=== PATIENT | female | born 1940 | race Caucasian/White ===

== ENCOUNTER 2019-11-16 23:32 | Inpatient (IN) ==
[2019-11-17] MEDS ORDERED: MORPHINE IV ONE ×2 (00:16→02:57)
[2019-11-17] MEDS ORDERED: ZOFRAN IV ONE (00:16)
[2019-11-17] MEDS ORDERED: NS 500 ML IV ONE (00:16)
[2019-11-17 00:39] LABS: BASO# 0.03 X1000 (0.0-0.2); BASO% 0.3 % (0.0-0.8); EOS# 0.14 X1000 (0.0-0.7); EOS% 1.2 % (0.0-10.0); HEMATOCRIT 33.3 % (37.0-47.0); IMM GRAN# 0.08 X1000 (0.0-0.04); IMM GRAN% 0.7 % (0.0-0.5); LYMPH# 1.85 X1000 (1.2-3.4); LYMPH% 15.7 % (20.5-51.1); MCH 26.1 PG (27-31); MCV 86.9 FL (81-99); MONO# 0.82 X1000 (0.11-0.59); MPV 8.6 FL (7.4-10.4); NEUT# 8.84 X1000 (1.4-6.5); NEUT% 75.1 % (42.2-75.2); PLT 456 X1000 (130-400); RBC 3.83 XMIL (4.2-5.4); RDW 16.3 % (11.5-14.5); WBC 11.76 X1000 (4.8-10.8)
[2019-11-17 00:51] LABS: INR 0.96; PROTIME 12.9 Seconds (11.0-16.0)
[2019-11-17 00:52] LABS: PTT 23.6 Seconds (22.3-41.8)
[2019-11-17 01:00] LABS: URINE SOURCE CATH
[2019-11-17 01:03] LABS: BILIRUBIN URINE NEGATIVE (NEGATIVE); BLOOD URINE SMALL (NEGATIVE); COLOR YELLOW; GLUCOSE URINE NEGATIVE (NEGATIVE); KETONE URINE NEGATIVE (NEGATIVE); LEUKOCYTES URINE LARGE (NEGATIVE); NITRITE URINE POSITIVE (NEGATIVE); PH URINE 6.5; PROTEIN URINE 70 mg/dL (NEGATIVE); SP GRAVITY URINE 1.006; TURBIDITY URINE HAZY (CLEAR); UR EPITHELIAL CELLS <10 /HPF (<10); URINE BACTERIA 4+ /HPF; URINE RBC <10 /HPF (<10); URINE WBC TNTC /HPF (<10); UROBILINOGEN URINE NORMAL (NORMAL)
[2019-11-17 01:37] LABS: ALB/GLOB RATIO 1.5; ALBUMIN 4.1 g/dL (3.5-5.0); CALCIUM 9.4 mg/dL (8.8-10.2); CREATININE 1.3 mg/dL (0.5-0.9); POTASSIUM 3.2 mmol/L (3.5-5.1); TOTAL BILIRUBIN 0.26 mg/dL (0.20-1.00); TOTAL PROTEIN 6.9 g/dL (6.3-8.3)
--- NOTE | 2019-11-17 02:08 | PROVIDER DOCUMENTATION ---
This chart was entered by Alba Carlton Scribe, acting as scribe for Alejandro Calixto MD. 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 Pt reports she has been feeling weak and has had a poor appetite recently. Pt has hx of COPD, DM and HTN. Pt does report hitting head but no LOC/V/N. Quality of Pain: reports: aching Severity in ED: mild, moderate Onset/Duration: just prior to arrival Timing: still present Modifying Factors: worse with: movement Any recent injury?: Yes (fell) Locality of Occurance: Home Similar Symptoms Previously?: No Recently seen or treated by another doctor?: No - FALL INJURY Location of Pain/Injury: reports: pelvis (left hip) Reason for Fall: reports: lost balance Symptoms prior to fall:: reports: other (weak) Loss of Consciousness: no loss of consciousness Injury Associated Symptoms: reports: joint pain (left hip) Review of Systems - Adult - REVIEW OF SYSTEMS - ADULT Constitutional: reports: see HPI, fatique. denies: chills, fever Eyes: reports: no symptoms reported Ears, Nose, Mouth & Throat: reports: no symptoms reported Cardiovascular: reports: see HPI. denies: chest pain, palpitations Respiratory: reports: no symptoms reported Gastrointestinal: reports: see HPI, poor appetite. denies: diarrhea, nausea, vomiting Genitourinary: reports: no symptoms reported Musculoskeletal: reports: see HPI, joint pain (left hip). denies: neck pain Integumentary: reports: no symptoms reported Neurological: reports: no symptoms reported Psychiatric: reports: no symptoms reported Endocrine: reports: no symptoms reported Hematologic/Lymphatic: reports: no symptoms reported Allergic/Immunologic: reports: no symptoms reported All Other Systems: Reviewed and Negative Past History - Adult - PAST MEDICAL HISTORY-ADULT Review of Records: reports: Nursing Assessment Review, Medications Reviewed, Social history reviewed & non-contributory. Major Childhood Illnesses: reports: denies history Cardiovascular: reports: HTN Respiratory: reports: asthma, COPD Gastrointestinal: reports: denies history Obstetrical/Gynecological: reports: denies history Genitourinary: reports: denies history Musculoskeletal: reports: denies history Neurological: reports: denies history Endocrine/Immune: reports: thyroid disorder (hyper) Other Conditions: reports: denies history - IMMUNIZATION STATUS Childhood Immunizations: See Nurse Assessment Flu Vaccine: See Nurse Assessment - FAMILY HISTORY Family History: reviewed, not pertinent - SOCIAL HISTORY Smoking: denies Physical Exam-Injury Related - Physical Exam-Injury Related Initial Vital Signs Reviewed: Yes General Appearance: appears well, alert. negative: anxious, combative Immobilization?: negative: backboard, C-collar Eyes: PERRL/EOMI, pink conjunctivae. negative: photophobia Head, Ears, Nose, Mouth & Throat: normocephalic/atraumatic, moist mucous membranes. negative: angioedema Neck: non-tender, full range of motion, supple, normal inspection. negative: C- spine tenderness Respiratory: chest non-tender, lungs clear, normal breath sounds. negative: rhonchi, stridor Cardiovascular: normal peripheral pulses, regular rate, rhythm, no edema. negative: bradycardia, tachycardia Abdominal Exam: normal bowel sounds, non tender, soft. negative: guarding, rigid Extremity: tenderness (left hip). negative: normal range of motion (left hip), deformity Integumentary: normal color. negative: ecchymosis, jaundice Psych/Mental Status: normal mood/affect, oriented x 3. negative: anxious, disheveled - Glascow Coma Score Best Eye Response (Luis): (4) open spontaneously Best Verbal Response (Luis): (5) oriented Best Motor Response ([place]): (6) obeys commands Luis Total: 15 Progress - PLAN OF CARE/RESULTS Progress/Plan/Lab Results: Vital Signs - 8 hr 11/16/19 23:44 11/16/19 23:50 11/16/19 23:52 Temperature 98 F Pulse Rate 96 H 93 H 94 H Respiratory Rate 18 Blood Pressure 143/68 143/68 O2 Sat by Pulse Oximetry 99 100 100 11/17/19 00:00 11/17/19 00:08 11/17/19 00:15 Temperature Pulse Rate 93 H Respiratory Rate Blood Pressure 115/61 O2 Sat by Pulse Oximetry 99 98 97 11/17/19 00:30 11/17/19 00:31 11/17/19 00:45 Temperature Pulse Rate 94 H Respiratory Rate Blood Pressure 112/95 O2 Sat by Pulse Oximetry 100 99 100 11/17/19 01:00 11/17/19 01:28 11/17/19 01:47 Temperature Pulse Rate Respiratory Rate Blood Pressure O2 Sat by Pulse Oximetry 96 96 97 Laboratory Results - last 24 hr 11/17/19 11/17/19 11/17/19 00:08 00:08 00:08 WBC 11.76 H RBC 3.83 L Hgb 10.0 L Hct 33.3 L MCV 86.9 MCH 26.1 L MCHC 30.0 L RDW Std Deviation 16.3 H Plt Count 456 H MPV 8.6 Immature Gran % (Auto) 0.7 H Neut % (Auto) 75.1 Lymph % (Auto) 15.7 L [place] % (Auto) 7.0 Eos % (Auto) 1.2 Baso % (Auto) 0.3 Immature Gran # (Auto) 0.08 H Neut # (Auto) 8.84 H Lymph # (Auto) 1.85 [place] # (Auto) 0.82 H Eos # (Auto) 0.14 Baso # (Auto) 0.03 PT INR PTT (Actin FS) Sodium 134 L Potassium 3.2 L Chloride 93 L Carbon Dioxide 26 Anion Gap 15 BUN 9 Creatinine 1.3 H Estimated GFR/1.73 m2 40 BUN/Creatinine Ratio 7 Glucose 141 H Calculated Osmolality 269 Calcium 9.4 Magnesium Total Bilirubin 0.26 AST 13 ALT 14 Alkaline Phosphatase 100 Total Protein 6.9 Albumin 4.1 Globulin 2.8 Albumin/Globulin Ratio 1.5 Plasma Lactate Free T4 1.96 H Urine Source Urine Color Urine Turbidity Urine pH Ur Specific [place] Urine Protein Ur Glucose (Stick) Ur Ketones (Stick) Urine Blood Urine Nitrite Urine Bilirubin Urobilinogen Dipstick Urine Leukocytes Urine WBC (Auto) Urine RBC (Auto) U Epithel Cells (Auto) Urine Bacteria (Auto) 11/17/19 11/17/19 11/17/19 00:08 00:08 00:40 WBC RBC Hgb Hct MCV MCH MCHC RDW Std Deviation Plt Count MPV Immature Gran % (Auto) Neut % (Auto) Lymph % (Auto) [place] % (Auto) Eos % (Auto) Baso % (Auto) Immature Gran # (Auto) Neut # (Auto) Lymph # (Auto) [place] # (Auto) Eos # (Auto) Baso # (Auto) PT 12.9 INR 0.96 PTT (Actin FS) 23.6 Sodium Potassium Chloride Carbon Dioxide Anion Gap BUN Creatinine Estimated GFR/1.73 m2 BUN/Creatinine Ratio Glucose Calculated Osmolality Calcium Magnesium 1.8 Total Bilirubin AST ALT Alkaline Phosphatase Total Protein Albumin Globulin Albumin/Globulin Ratio Plasma Lactate 1.2 Free T4 Urine Source Urine Color Urine Turbidity Urine pH Ur Specific [place] Urine Protein Ur Glucose (Stick) Ur Ketones (Stick) Urine Blood Urine Nitrite Urine Bilirubin Urobilinogen Dipstick Urine Leukocytes Urine WBC (Auto) Urine RBC (Auto) U Epithel Cells (Auto) Urine Bacteria (Auto) 11/17/19 00:40 WBC RBC Hgb Hct MCV MCH MCHC RDW Std Deviation Plt Count MPV Immature Gran % (Auto) Neut % (Auto) Lymph % (Auto) [place] % (Auto) Eos % (Auto) Baso % (Auto) Immature Gran # (Auto) Neut # (Auto) Lymph # (Auto) [place] # (Auto) Eos # (Auto) Baso # (Auto) PT INR PTT (Actin FS) Sodium Potassium Chloride Carbon Dioxide Anion Gap BUN Creatinine Estimated GFR/1.73 m2 BUN/Creatinine Ratio Glucose Calculated Osmolality Calcium Magnesium Total Bilirubin AST ALT Alkaline Phosphatase Total Protein Albumin Globulin Albumin/Globulin Ratio Plasma Lactate Free T4 Urine Source CATH Urine Color YELLOW Urine Turbidity HAZY Urine pH 6.5 Ur Specific [place] 1.006 Urine Protein 70 A Ur Glucose (Stick) NEGATIVE Ur Ketones (Stick) NEGATIVE Urine Blood SMALL A Urine Nitrite POSITIVE A Urine Bilirubin NEGATIVE Urobilinogen Dipstick NORMAL Urine Leukocytes LARGE A Urine WBC (Auto) TNTC A Urine RBC (Auto) <10 U Epithel Cells (Auto) <10 Urine Bacteria (Auto) 4+ Orders Category Date Time Status Saline Loc NOW Care 11/17/19 00:15 Active CHEST-PORTABLE [RAD] Stat Exams 11/17/19 00:16 Taken XRAY PELVIS W/HIP 2-3VW LT [RAD] Stat Exams 11/17/19 01:19 Taken CBC WITH ELECTRONIC DIFF [HEME] Stat Lab 11/17/19 00:08 Completed COMPREHENSIVE METABOLIC PANEL [CHEM] Stat Lab 11/17/19 00:08 Completed FREE T4 Stat Lab 11/17/19 00:08 Completed LACTATE, PLASMA [CHEM] Stat Lab 11/17/19 00:40 Completed MAGNESIUM [CHEM] Stat Lab 11/17/19 00:08 Completed PROTIME WITH INR [COAG] Stat Lab 11/17/19 00:08 Completed PTT [COAG] Stat Lab 11/17/19 00:08 Completed URINALYSIS W/POSS RFLX CULT [URINALYSIS] Stat Lab 11/17/19 00:40 Completed URINE CULTURE [RM] Routine Lab 11/17/19 00:38 Received 0.9% Sodium Chloride Inj [Ns] 500 ml Med 11/17/19 00:16 Discontinued IV 999 mls/hr Morphine Med 11/17/19 00:16 Discontinued 2 mg IV NOW ONE Ondansetron Odt [Zofran Odt] Med 11/17/19 02:40 Once 4 mg PO NOW ONE Ondansetron [Zofran] Med 11/17/19 00:16 Discontinued 4 mg IV NOW ONE Potassium Chloride E.r. [Klor-Con] Med 11/17/19 02:40 Once 40 meq PO NOW ONE Rocephin 1 gm/Ns IV Now Med 11/17/19 02:41 Ordered CefTRIAXONE [Rocephin] 1 gm 0.9% Sodium Chloride Inj [Ns] 50 ml IV NOW EKG [EKG] Stat Ther 11/17/19 00:15 Ordered Result Diagrams: 11/17/19 00:08 11/17/19 00:08 - EKG 1 Time of EKG reading by physician:: 00:42 EKG Read and Signed by:: Alejandro Calixto EKG Interpretation (*Must complete 3 of following elements*): Normal Rate: 98 Rhythm: NSR QRS: normal MI Interval: normal - CONSULTS/PCP/HOSPITALIST Notification #1 *Consult/PCP/Hospitalist*: DR BOWER Time Discussed: 02:45 Consult Disposition: Admit Departure - Departure Date of Disposition Decision: 11/17/19 Time of Disposition Decision: 02:45 DIAGNOSIS: Weakness, Hypokalemia, Hyperthyroidism Fall Qualifiers: Encounter type: initial encounter Qualified Code(s): W19.XXXA - Unspecified fall, initial encounter Contusion of left hip Qualifiers: Encounter type: initial encounter Qualified Code(s): S70.02XA - Contusion of left hip, initial encounter UTI (urinary tract infection) Qualifiers: Urinary tract infection type: acute cystitis Hematuria presence: without hematuria Qualified Code(s): N30.00 - Acute cystitis without hematuria Disposition: ADMITTED INPATIENT 09 Certified Medical Emergency: Emergent Condition: Stable Additional Instructions: ED Follow Up Instructions: You have been treated by a care provider in the Emergency Department. These instructions are being provided to you so you can have an understanding of how to care for yourself upon discharge. Upon discharge from the Emergency Department, you are responsible for making arrangements for follow-up care by a physician of your choice. Take all prescribed medications as directed. Return to the Emergency Department immediately for any new or worsening symptoms. You may call the Physician Referral phone number at [phone] to obtain a list of Physicians who are taking new patients. Referrals and Follow-Ups: Adolfo Sandoval MD [Primary Care Provider] - - Critical Care Note This patient required my direct & personal management of CC.: No Attestation - Physician/ ROGELIO Attestation Patient care was provided by Advanced Practice Provider:: No The physician spent face to face time with patient:: Yes Advanced Practice Provider documentation review:: Supervising physician onsite and consulted in the evaluation and care of this patient. The physician did have a face to face encounter with the patient. This chart was documented by the indicated scribe, (Alba Carlton Scribe) and accurately reflects the services I performed and decisions made by me, Alejandro Calixto MD, as attested by the provider's signature.
[2019-11-17] MEDS ORDERED: ZOFRAN ODT PO ONE (02:40)
[2019-11-17] MEDS ORDERED: KLOR-CON PO ONE ×2 (02:40→05:43)
[2019-11-17] MEDS ORDERED: ROCEPHIN 1 GM in NS 50 ML IV ONE (02:41)
[2019-11-17] MEDS ORDERED: ANTIVERT PO PRN (04:30)
[2019-11-17] MEDS ORDERED: NS 1,000 ML ONE (04:41)
[2019-11-17] MEDS: NS 1,000 ML IV SCH ×2 (04:45→18:23)
[2019-11-17] MEDS ORDERED: ROCEPHIN 1 GM in NS 50 ML IV SCH (05:45)
[2019-11-17] MEDS: LEVAQUIN 500 MG/D5W 500 MG/100 ML IVPB IV SCH (06:32)
--- NOTE | 2019-11-17 07:28 | Diag Imaging Result Doc PS360 ---
EXAM: CHEST-PORTABLE 11/17/2019 HISTORY: copd TECHNIQUE: AP portable at 1230 COMMENT: There is COPD. There is a calcified granuloma present in the right upper lobe. There are degenerative changes in the right shoulder. Compared to 05/12/2019 there has been no significant change. IMPRESSION: COPD. Electronically signed by Darryl Miller 11/17/2019 7:26 AM
--- NOTE | 2019-11-17 07:41 | Diag Imaging Result Doc PS360 ---
EXAM: XRAY PELVIS W/HIP 2-3VW LT 11/17/2019 HISTORY: fall, injury TECHNIQUE: AP pelvis and left hip three views COMMENT: The hip joint spaces are narrowed. There is osteophyte formation particularly in the left femoral head. There is also degenerative change in the symphysis pubis. No evidence of acute fracture or dislocation is present. There is generalized osteopenia. IMPRESSION: Degenerative changes. Electronically signed by Darryl Miller 11/17/2019 7:39 AM
[2019-11-17] MEDS: HUMULIN R SUBQ SCH ×3 (07:44→16:42)
--- NOTE | 2019-11-17 07:46 | Diag Imaging Result Doc PS360 ---
EXAM: CT PELVIS W/O CONTRAST 11/17/2019 HISTORY: FALL, PAIN LEFT HIP TECHNIQUE: This exam was performed using automated exposure control, adjustment of mA or kV according to patient size, and/or use of iterative reconstruction technique. COMMENT: There are postsurgical changes in the lower lumbar spine. There is generalized osteopenia. There is an insufficiency fracture of the left sacral eric. There is separation of the lateral acetabular rim clinically posteriorly which appears old. There are osteoarthritic changes in both hips. There is a fracture of the superior pubic ramus and the inferior pubic ramus on the left. There is some stranding in the retroperitoneal fat adjacent to the left psoas muscle and along the left pelvic sidewall. This may be due to mild hematoma formation. There is a hematoma anteriorly adjacent to the pubic ramus fracture. IMPRESSION: Acute pubic rami fractures and left sacral insufficiency fracture. Soft tissue hematomas as described. Electronically signed by Darryl Miller 11/17/2019 7:44 AM
[2019-11-17] MEDS: DUONEB (A & A) INH PRN (07:52)
--- NOTE | 2019-11-17 07:54 | Diag Imaging Result Doc PS360 ---
EXAM: CT HEAD/C-SPINE W/O CONTRAST INDICATION: head injury TECHNIQUE: This exam was performed using automated exposure control, adjustment of mA or kV according to patient size, and/or use of iterative reconstruction technique. COMPARISON: 07/08/2019 FINDINGS: Head: There is evidence of minimal periventricular white matter microangiopathy, stable. There is no definite acute infarct given the limited sensitivity of CT versus MRI. There is no discrete intracranial mass, mass effect, or intracranial hemorrhage. The surrounding soft tissues are essentially unremarkable. The calvaria is intact. C-spine: There is moderate multilevel degenerative facet arthropathy. There is mild degenerative disc disease at and below the C5-6 level. There is no evidence of high-grade central spinal stenosis. Otherwise, there is no discrete fracture, subluxation, or intrinsic osseous lesion. The surrounding soft tissues are essentially unremarkable. IMPRESSION: 1.Stable very mild periventricular chronic white matter changes but no evidence of acute intracranial pathology. 2.Multilevel degenerative arthropathy but no evidence of fracture or other definite acute C-spine injury. Electronically signed by Yonathan Lombardo 11/17/2019 7:52 AM
[2019-11-17] MEDS: NORCO-7.5 PO PRN ×2 (09:04→18:20)
[2019-11-17] MEDS: PRILOSEC PO SCH (09:05)
[2019-11-17] MEDS: NORVASC PO SCH (09:05)
[2019-11-17] MEDS: TOPROL XL PO SCH (09:05)
[2019-11-17] MEDS: SYNTHROID PO SCH (09:05)
[2019-11-17] MEDS: PAMELOR PO SCH (09:05)
--- NOTE | 2019-11-17 09:28 | EKG Report ---
Test Performed on : 11/17/2019 00:33:52 AM Test Reason : fall Blood Pressure : / mmHG Vent. Rate : 098 BPM Atrial Rate : 098 BPM P-R Int : 156 ms QRS Dur : 074 ms QT Int : 350 ms P-R-T Axes : 051 068 069 degrees QTc Int : 446 ms Normal sinus rhythm. Normal ECG When compared with ECG of 08-JUL-2019 14:38, No significant change was found Unconfirmed Result
--- NOTE | 2019-11-17 09:49 | HISTORY AND PHYSICAL ---
CHIEF COMPLAINT: Fall. HISTORY OF PRESENT ILLNESS: Ms. Gregory Hough is a 78-year-old female, who has a history of COPD, hypertension, diabetes mellitus, hyperlipidemia, hypothyroidism, gastroesophageal reflux disease. The patient sustained a fall at home prior to coming to the ER. The part of the body that had impact with the floor were the head and also her body. She denies any loss of consciousness, dizziness. However, she describes having some headaches. She also describes having pain in her left groin region. When she presented to the ER, she also had a urinalysis done. The picture was that of possible urinary tract infection. The patient will now be admitted to the floor for further management. PAST MEDICAL HISTORY: COPD. The patient is on 2 L of oxygen at night. Hypertension, diabetes, hyperlipidemia, hypothyroidism and gastroesophageal reflux disease. SOCIAL HISTORY: Patient does Vaping. No alcohol or drug use. ALLERGIES: No known drug allergies. PAST SURGICAL HISTORY: Patient has had back surgery, hysterectomy, cataract surgery. FAMILY HISTORY: Positive for heart disease. MEDICATIONS: The patient's medications include the followin. Rosuvastatin 40 mg p.o. daily. 2. Omeprazole 40 mg p.o. daily. 3. Nortriptyline 25 mg p.o. daily. 4. Metoprolol succinate 50 mg p.o. daily. 5. Meclizine 12.5 mg p.o. 3 times a day. 6. Levothyroxine 800 mg p.o. daily. 7. Fluphenazine 2.5 mg p.o. at bedtime. 8. Amlodipine 2.5 mg p.o. daily. 9. Albuterol/ipratropium 3 mL inhaled four times a day. 10. Nystatin cream as directed. 11. Breo Ellipta 1 inhalation daily. REVIEW OF SYSTEMS: General: Question of fever. MARKING STITCHER: No headaches, but describes some dizziness. Eyes: No blurred vision. ENT: No hearing loss. No sinus problems. Cardiovascular: No chest pain. Respiratory: No cough. GI: No nausea, vomiting, diarrhea. : No dysuria. Musculoskeletal: No joint pains. Dermatology: No skin lesions. Psychiatry: She has anxiety with depression. Hematology: No bleeding problems. Endocrinology: Has thyroid disease and diabetes. Allergy/immunologic: No symptoms suggestive of allergic rhinitis. LABORATORY DATA: WBCs 11.6, hematocrit 33.3, platelet 456. INR 0.96. Sodium is 134, potassium is 3.2, chloride is 93, bicarbonate 26. BUN is 9, creatinine is 1.3. UA shows positive nitrite, large amount of leukocytes, numerous WBCs, small amount of blood. ASSESSMENT AND PLAN: 1. History of recent fall. We have requested a CT scan of the head without contrast. Cervical spine CT without contrast. Also pending is x-ray of the pelvis and hip and CT of the pelvis. In the meanwhile, optimize the patient's pain control. Recommend physical therapy. 2. Chronic obstructive pulmonary disease. Nebulized bronchodilators as needed. 3. Hypertension. Optimize blood pressure control. 4. Probable urinary tract infection. Obtain urine and blood cultures. Start patient on empiric antibiotics. 5. Diabetes mellitus. Blood sugar monitoring, as well as sliding scale insulin. Check hemoglobin A1c level. 6. Hyperlipidemia. Continue lipid-lowering agent. 7. Hypothyroidism. Continue levothyroxine. Check thyroid function test. 8. Gastroesophageal reflux disease. Continue proton pump inhibitor. 9. Anemia. Check iron studies, as well as B 12 and folate level. 10. Acute kidney injury. Maintain patient on intravenous fluids. Follow up on renal function. 11. Hypokalemia. Replace potassium. Check magnesium level. Follow up on potassium level. 12. Deep vein thrombosis prophylaxis. Sequential compression devices. 13. Gastrointestinal prophylaxis. Proton pump inhibitor. cc: MD Adolfo Machado MD
[2019-11-17] MEDS: XANAX PO PRN ×2 (13:17→18:20)
[2019-11-17] MEDS: BREO ELLIPTA 100/25 MCG INH INH SCH ×2 (14:48→22:11)
[2019-11-17] MEDS ORDERED: PROLIXIN PO SCH (21:00)
[2019-11-17] MEDS: PROLIXIN PO SCH (23:15)
[2019-11-17] MEDS: CRESTOR PO SCH (23:17)
[2019-11-18] MEDS: NORCO-7.5 PO PRN ×3 (02:09→18:28)
[2019-11-18] MEDS: HUMULIN R SUBQ SCH ×5 (02:50→21:03)
[2019-11-18] MEDS: XANAX PO PRN ×2 (03:50→21:15)
[2019-11-18] MEDS: SYNTHROID PO SCH ×2 (05:55→06:15)
[2019-11-18] MEDS: LEVAQUIN 500 MG/D5W 500 MG/100 ML IVPB IV SCH (05:57)
[2019-11-18 07:27] LABS: HEMOGLOBIN A1C 5.7 % (4.8-6.0)
[2019-11-18] MEDS: NS 1,000 ML IV SCH ×2 (09:01→21:13)
[2019-11-18] MEDS: NORVASC PO SCH (09:02)
[2019-11-18] MEDS: PRILOSEC PO SCH (09:02)
[2019-11-18] MEDS: TOPROL XL PO SCH (09:02)
[2019-11-18] MEDS: PAMELOR PO SCH (09:02)
[2019-11-18] MEDS: BREO ELLIPTA 100/25 MCG INH INH SCH ×2 (10:29→20:00)
[2019-11-18] MEDS: DUONEB (A & A) INH PRN ×2 (10:34→15:56)
--- NOTE | 2019-11-18 12:38 | Diag Imaging Result Doc PS360 ---
EXAM: CT ANGIOGRAM AORTA W/RUNOFF 11/18/2019 HISTORY: Cyanotic Left leg/Foot. TECHNIQUE: This exam was performed using automated exposure control, adjustment of mA or kV according to patient size, and/or use of iterative reconstruction technique. COMMENT: There are no previous studies available for comparison. 3-D MIPS were performed. There is atelectasis or fibrosis particularly in the right lower lobe. There are some calcified granulomata present in the left lower lobe. There are granulomata throughout the spleen. There is a hiatal hernia. There are cysts in the left hepatic lobe. There is no evidence of hydronephrosis or masses in the kidneys. There is no evidence of bowel obstruction. Dense calcification is seen in the ostia of the renal arteries bilaterally. There is also calcification in the proximal superior mesenteric artery and ostial calcification in the celiac artery with some apparent poststenotic dilatation. There is aneurysmal dilatation of the infrarenal abdominal aorta with a maximum AP diameter of 2.1 cm. There are dense calcific plaques present in the common iliac arteries bilaterally and there may be significant stenosis of the left common iliac which is partially obscured by beam hardening artifact from orthopedic hardware in the lower lumbar spine. There is hematoma formation present in the anterior inferior pelvic wall on the left related to pubic rami fractures. There is also some stranding along the pelvic sidewall laterally and posteriorly on the left. This is presumably due to hematoma formation. There are surgical clips present in the left groin which produces some metallic artifact obscuring the proximal portion of the superficial femoral artery. Possibility of a significant stenosis in this location cannot be entirely excluded but there is contrast above and below this area. There are several calcified plaques demonstrating at least 50% diameter stenosis above the level of the adductor canal. There is a calcific plaque with 50% diameter stenosis in the popliteal artery. The tibioperoneal trunk is patent and there is three-vessel runoff on the left to below the ankle. On the right side, there are multiple calcific plaques in the superficial femoral and popliteal artery without evidence of occlusion. There is apparent three-vessel runoff to below the ankle. IMPRESSION: 1. Extensive atherosclerotic disease and calcification with multiple stenotic lesions in both superficial femoral arteries. The possibility of significant stenosis in the left common iliac artery cannot be excluded. 2. Pelvic hematomata which have previously been described. 3. Abdominal aortic aneurysm. Electronically signed by Darryl Miller 11/18/2019 12:36 PM
--- NOTE | 2019-11-18 14:00 | ORTHOPAEDICS CONSULTATION ---
DATE: 11/18/2019 CHIEF COMPLAINT: Fall with left hip pain and back pain. HISTORY OF PRESENT ILLNESS: Ms. Hough is a 78-year-old female who fell yesterday on 11/17/2019. She presented to the ER where they did x-rays and scans and diagnosed her with pubic rami fractures. Orthopedics was consulted. Most of her pain is in the low back and in the left groin area. It is worse when she moves it. It does feel better when she is off of it. PAST MEDICAL HISTORY: Hyperlipidemia, hypertension, COPD, diabetes, hypothyroidism, reflux. PAST SURGICAL HISTORY: She has had back surgery she had a hysterectomy. ALLERGIES: No known drug allergies. MEDICATIONS: Per the medical record. SOCIAL HISTORY: She denies any alcohol use. REVIEW OF SYSTEMS: Positive for hip and back pain. All other systems are essentially negative. PHYSICAL EXAMINATION: General: The patient is lying in bed. She is in no acute distress. Head and Neck: Normocephalic, atraumatic. Respirations: Nonlabored breathing. Cardiovascular: Regular pulse. Abdomen: Is nondistended. Left lower extremity exam: She does have good sensation to light touch to the toes. She has a faint pulse on both the DP and PT. She does have good dorsiflexion and plantar flexion of the foot. She does have pain with range of motion of the hip. IMAGING: CT scan shows left-sided inferior and superior pubic rami fractures and she also has a small left sacral ala insufficiency fracture. It looks like she has got hardware in her lumbar spine at L4-5. ASSESSMENT: 1. Left inferior superior rami fractures. 2. Left sacral insufficiency fracture. PLAN: I discussed with Ms. Hough about her injuries. I am okay with her being weight bear as tolerated left lower extremity. She is going to work with physical therapy getting up and out of bed. It will be a pain control tissue with her over the next few weeks, but I am okay with her being mobilized out of bed. While she is in the hospital, we will continue to follow. cc: MD Adolfo Daniels MD
--- NOTE | 2019-11-18 14:17 | PROGRESS NOTE ---
DATE: 11/18/2019 SUBJECTIVE: The patient denies having any new complaints. She appears well, and denies having any significant issues, except for having pain in her pelvic area. OBJECTIVE: Vital Signs: Temperature 98.7 degrees, pulse 94 per minute, respiratory rate 20 per minute, blood pressure 149/45, pulse oximetry 98% on 3 L of oxygen via nasal cannula. General: The patient is alert and oriented x3. She does not appear to be in any acute distress. Cardiovascular: First and second heart sounds are audible without murmurs or gallops. Respiratory: Bilateral lung air entry is moderately decreased, but there are no rales or rhonchi present on auscultation. Gastrointestinal: Abdomen is soft and nondistended. Normal bowel sounds are present. Musculoskeletal: Pelvic area does not appear to be significantly tender, although left hip movements are painful. DIAGNOSTIC DATA: After I saw the patient, the nurse reported that the patient was having some decreased pulse on the left lower extremity, after which CT angiogram of the aorta with runoff was ordered that showed extensive atherosclerotic disease and calcification, with multiple stenotic lesions in both superficial femoral arteries. The possibility of significant stenosis in the left common iliac artery could not be excluded. Pelvic hematoma was also seen, and there was abdominal aortic aneurysm infrarenally at 2.1 cm. IMPRESSION: 1. Acute pubic rami fractures in this 78-year-old lady, who also has a pelvic hematoma and has extensive atherosclerosis involving the splanchnic circulation, as well as peripheral arterial disease. 2. Multiple comorbid conditions, including chronic obstructive pulmonary disease, diabetes mellitus, hypertension, dyslipidemia, and hypothyroidism. PLAN: The patient has been recommended to have physical therapy as per Orthopedics, but because of her arterial atherosclerosis, I am going to obtain Vascular Surgery consultation for further evaluation. We are going to continue with the current home medications, along with pain management control, and also give her levofloxacin 500 mg a day for her urinary tract infection. Further recommendations will be given as per hospital course. cc: Adolfo Sandoval MD
--- NOTE | 2019-11-18 17:04 | GENERAL SURGERY CONSULTATION ---
DATE: 11/18/2019 HISTORY OF PRESENT ILLNESS: Ms. Hough is a 78-year-old who was admitted after a fall at home. She apparently suffered a fracture of her pelvis. Workup included an aortogram with runoff showing possible occlusive disease in her left common iliac. It also shows a small aneurysm. I have been asked to see her regarding these findings. PAST MEDICAL HISTORY: Her past history is pertinent for COPD, hypertension, diabetes, hyperlipidemia, hypothyroidism, gastroesophageal reflux disease. PAST SURGICAL HISTORY: Previous surgeries include back surgery, hysterectomy, and cataract surgery. MEDICATIONS: Listed. ALLERGIES: No known drug allergies. SOCIAL HISTORY: She does vape. She denies alcohol or illicit drug use. FAMILY HISTORY: Pertinent for heart disease. REVIEW OF SYSTEMS: Negative in the subsystems all 10 subsystems except as noted above. PHYSICAL EXAMINATION: Vital Signs: She is afebrile. Heart rate 75, blood pressure 139/46. Neck: No cervical adenopathy. Lungs: Bilateral breath sounds. Heart: Regular rate and rhythm. Abdomen: Soft. Musculoskeletal: Her pubis is mildly tender to palpation. She does have femoral pulses, normal on the right and 2+ on the left. She has a 1+ left dorsalis pedis pulse and a 2+ right dorsalis pedis pulse. There is no peripheral edema. She moves all extremities. Neurologic: She is awake and alert. There are no apparent neurologic deficits. LABORATORY DATA: Reveals a white count 11,700, hemoglobin 10, hematocrit 33. BUN 9, creatinine 1.3. Urine is nitrite positive. CT scan report is as noted above. ASSESSMENT: 1. Small abdominal aortic aneurysm measuring 2.1 cm. 2. Atherosclerotic disease without significant stenosis. PLAN: I will get a lower extremity arterial study to see if in fact there is any significant diminution of flow in the left side. However, she still has pedal pulses. I do not think any intervention is indicated currently regarding her vascular disease. I will be glad to follow up with her in the office. cc: MD Adolfo Kelly MD
[2019-11-18] MEDS: PROLIXIN PO SCH (21:15)
[2019-11-18] MEDS: CRESTOR PO SCH (21:15)
[2019-11-19] MEDS: NORCO-7.5 PO PRN ×4 (01:40→21:23)
[2019-11-19] MEDS: HUMULIN R SUBQ SCH ×5 (06:32→21:28)
[2019-11-19] MEDS: SYNTHROID PO SCH (07:00)
[2019-11-19] MEDS: LEVAQUIN 500 MG/D5W 500 MG/100 ML IVPB IV SCH (07:00)
[2019-11-19 07:52] LABS: BASO# 0.02 X1000 (0.0-0.2); BASO% 0.2 % (0.0-0.8); EOS# 0.18 X1000 (0.0-0.7); EOS% 2.2 % (0.0-10.0); HEMATOCRIT 28.5 % (37.0-47.0); HEMOGLOBIN 8.2 g/dL (12.0-16.0); IMM GRAN# 0.02 X1000 (0.0-0.04); IMM GRAN% 0.2 % (0.0-0.5); LYMPH# 1.65 X1000 (1.2-3.4); LYMPH% 20.1 % (20.5-51.1); MCH 26.1 PG (27-31); MCHC 28.8 g/dL (33-37); MCV 90.8 FL (81-99); MONO# 0.86 X1000 (0.11-0.59); MONO% 10.5 % (1.7-9.3); NEUT# 5.47 X1000 (1.4-6.5); NEUT% 66.8 % (42.2-75.2); PLT 347 X1000 (130-400); RBC 3.14 XMIL (4.2-5.4); RDW 17.2 % (11.5-14.5)
[2019-11-19 07:57] LABS: CALCIUM 8.6 mg/dL (8.8-10.2); POTASSIUM 3.7 mmol/L (3.5-5.1)
[2019-11-19] MEDS: NORVASC PO SCH (09:57)
[2019-11-19] MEDS: PAMELOR PO SCH (09:58)
[2019-11-19] MEDS: PRILOSEC PO SCH (09:58)
[2019-11-19] MEDS: TOPROL XL PO SCH (09:58)
--- NOTE | 2019-11-19 09:58 | PROGRESS NOTE ---
DATE: 11/19/2019 SUBJECTIVE: The patient denies having any new complaints today. She feels actually somewhat better as compared to yesterday. OBJECTIVE: Vital Signs: Temperature 98.4 degrees, pulse 85 per minute, respiratory rate 16 per minute, blood pressure 134/47, pulse oximetry 96% on 2 L of oxygen via nasal cannula. General: Patient is alert and oriented x3. She does not appear to be in any acute distress. Cardiovascular System: First and second heart sounds are audible without any murmurs or gallops. Respiratory System: Bilateral lung air entry is good without any rales or rhonchi. Abdomen: Is soft and nondistended. Normal bowel sounds are present. Musculoskeletal System: Left-sided hip pain is appreciated on the left hip joint movements. Left foot appears to be somewhat cold to touch, although dorsalis pedis pulses are palpable. DIAGNOSTIC DATA: CBC shows hemoglobin of 8.2 and hematocrit 28.5. In comparison, her hemoglobin and hematocrit were 10 and 33[address] angiogram of the aorta with runoff showed extensive atherosclerotic disease and calcification with multiple stenotic lesions in both superficial femoral arteries. The possibility of significant stenosis in the left common iliac artery could not be excluded. Pelvic hematoma was also noted along with small infrarenal abdominal aortic aneurysm at 2.1 cm. Urine culture has grown E. coli, but the final sensitivity report is pending at the time of this dictation. IMPRESSION: 1. Acute pubic rami fractures in this 78-year-old lady who also had pelvic hematoma that has resulted in anemia. 2. Urinary tract infection secondary to Escherichia coli. 3. Peripheral arterial disease. 4. Multiple comorbid conditions including chronic obstructive pulmonary disease, type 2 diabetes mellitus, hypertension, dyslipidemia, and hypothyroidism. PLAN: The patient will continue to get physical therapy as per Orthopedics and we are going to monitor her H and H because of drop secondary to pelvic hematoma. As far as her peripheral vascular disease is concerned, Vascular Surgical consultation was obtained who think that she does not need any intervention at this time and will follow up with the patient as outpatient. We will continue with levofloxacin for urinary tract infection and adjust antibiotics as per culture sensitivity report when the final report is available. We will continue with routine supportive care and possibly transfer her to rehab sometime early next week. cc: Adolfo Sandoval MD
[2019-11-19] MEDS: BREO ELLIPTA 100/25 MCG INH INH SCH ×2 (10:05→21:38)
[2019-11-19] MEDS: DUONEB (A & A) INH PRN ×3 (10:06→21:38)
[2019-11-19] MEDS: NS 1,000 ML IV SCH (14:34)
[2019-11-19] MEDS: XANAX PO PRN (16:31)
[2019-11-19] MEDS: PROLIXIN PO SCH (21:22)
[2019-11-19] MEDS: CRESTOR PO SCH (22:12)
[2019-11-20] MEDS: NS 1,000 ML IV SCH ×3 (00:58→21:07)
[2019-11-20] MEDS: DUONEB (A & A) INH PRN ×3 (03:37→15:59)
[2019-11-20] MEDS: SYNTHROID PO SCH ×2 (05:54→06:03)
[2019-11-20] MEDS: NORCO-7.5 PO PRN ×3 (05:54→18:15)
[2019-11-20] MEDS: LEVAQUIN 500 MG/D5W 500 MG/100 ML IVPB IV SCH (05:54)
[2019-11-20] MEDS: HUMULIN R SUBQ SCH ×4 (06:02→21:02)
[2019-11-20] MEDS: BREO ELLIPTA 100/25 MCG INH INH SCH ×2 (08:11→22:17)
[2019-11-20] MEDS: PAMELOR PO SCH (10:15)
[2019-11-20] MEDS: NORVASC PO SCH (10:15)
[2019-11-20] MEDS: TOPROL XL PO SCH (10:15)
[2019-11-20] MEDS: PRILOSEC PO SCH (10:16)
[2019-11-20] MEDS: XANAX PO PRN (10:25)
[2019-11-20] MEDS: LOVENOX SUBQ SCH (18:15)
[2019-11-20] MEDS: CRESTOR PO SCH (21:02)
[2019-11-20] MEDS: PROLIXIN PO SCH (21:03)
--- NOTE | 2019-11-20 22:50 | PROGRESS NOTE ---
DATE: 11/20/2019 SUBJECTIVE: Ms. Hough is a 78-year-old white female patient admitted status post a fall. The patient was found to have an acute pubic rami fracture, left sacral insufficiency fracture, and a soft tissue hematoma. Also, the patient had blood loss anemia. The patient is doing fair. Still complaining of significant pain in the pelvic area. The patient has peripheral vascular disease. Admission history and physical noted. The patient has more pain with movement of the legs. The patient has a Esposito catheter. She denies any loss of consciousness. No gross hematuria. No chest pain or palpitations or vertigo prior to fall. The patient had an aortogram done with runoff and results reviewed. Mild cough. No expectoration. Past medical history is significant for hyperlipidemia, non insulin-dependent diabetes mellitus, hypertension, COPD, hypothyroidism, gastroesophageal reflux disease, peripheral arterial disease, and COPD. OBJECTIVE: Vital Signs: Blood pressure 145/50, pulse 87, respirations 16, temperature 97.9. Neck: Supple. No JVD, thyromegaly or lymphadenopathy. Chest: Bilateral good air entry present. Occasional wheezing. Cardiovascular: S1 and S2 heard. Abdomen: Soft, globular. Bowel sounds present. Mild tenderness, suprapubic area. Extremities: No cyanosis, clubbing. No acute DVT. COMPUTER LAB ASSISTANT: Alert, awake, answering questions fairly well. Movement of legs causing pain.. PROBLEM LIST: 1. Acute pubic rami fracture. 2. Pelvic hematoma. 3. Urinary tract infection due to E coli. 4. Peripheral arterial disease. 5. Chronic obstructive pulmonary disease. 6. Hypothyroidism. 7. Hypertension. 8. Non insulin-dependent diabetes mellitus. PLAN: 1. Current medications noted. Continue current treatment. 2. Pain management. 3. Consider physical therapy evaluation. 4. Fall precaution. 5. I am going to repeat blood work tomorrow. Overall plan discussed with the patient, and she is in agreement. cc: MD Adolfo Worthy MD
[2019-11-21] MEDS: NS 1,000 ML IV SCH ×4 (02:59→22:13)
[2019-11-21] MEDS: NORCO-7.5 PO PRN ×4 (02:59→22:13)
--- NOTE | 2019-11-21 04:20 | VASCULAR LAB ---
PROCEDURE NAME: Arterial Bilateral Legs - 11/19/2019 REQUESTING PHYSICIAN: Dr. Agustin. AIRPLANE TECHNICIAN: Octavio. INDICATION: 1. Peripheral vascular disease. 2. Abnormal CTA. FINDINGS: Segmental pressures are as follows: Right brachial 148, left 125. Right proximal thigh 179, left 175. Right distal thigh 138, left 144. Right popliteal 114, left 143. Right dorsalis pedis 112, left 119. Right posterior tibial 113, left 129. Right great toe not measured, left 60. Right SELENA 0.76, left 0.87. Right TBI not measured, left 0.41. Waveform analysis: Waveforms appear to be somewhat blunted and are at least biphasic on the right side. There is no waveform noted on the toe. The left side is also biphasic to monophasic, but there is at least some pulsatility noted to the toe. INTERPRETATION: Likely bilateral lower extremity disease. This could be present in the superficial femoral artery, but could even be more proximal. There is essentially no waveform noted on the right toe. cc: MD Alejandro Phillips MD
[2019-11-21] MEDS: LEVAQUIN 500 MG/D5W 500 MG/100 ML IVPB IV SCH (05:57)
[2019-11-21] MEDS: SYNTHROID PO SCH (06:00)
[2019-11-21] MEDS: HUMULIN R SUBQ SCH ×4 (06:41→20:30)
[2019-11-21 07:48] LABS: BASO# 0.03 X1000 (0.0-0.2); BASO% 0.4 % (0.0-0.8); EOS# 0.35 X1000 (0.0-0.7); EOS% 4.2 % (0.0-10.0); HEMATOCRIT 27.5 % (37.0-47.0); HEMOGLOBIN 8.1 g/dL (12.0-16.0); IMM GRAN# 0.03 X1000 (0.0-0.04); IMM GRAN% 0.4 % (0.0-0.5); LYMPH% 20.6 % (20.5-51.1); MCH 26.4 PG (27-31); MCHC 29.5 g/dL (33-37); MCV 89.6 FL (81-99); MONO# 0.81 X1000 (0.11-0.59); MONO% 9.8 % (1.7-9.3); MPV 9.1 FL (7.4-10.4); NEUT# 5.33 X1000 (1.4-6.5); NEUT% 64.6 % (42.2-75.2); PLT 358 X1000 (130-400); RBC 3.07 XMIL (4.2-5.4); RDW 16.9 % (11.5-14.5); WBC 8.25 X1000 (4.8-10.8)
[2019-11-21 08:12] LABS: ALBUMIN 2.8 g/dL (3.5-5.0); CALCIUM 8.8 mg/dL (8.8-10.2); CREATININE 1.1 mg/dL (0.5-0.9); MAGNESIUM 1.9 mg/dL (1.5-2.7); POTASSIUM 3.4 mmol/L (3.5-5.1); TOTAL BILIRUBIN 0.18 mg/dL (0.20-1.00); TOTAL PROTEIN 5.7 g/dL (6.3-8.3)
[2019-11-21] MEDS: DUONEB (A & A) INH PRN ×3 (08:38→20:07)
[2019-11-21] MEDS: BREO ELLIPTA 100/25 MCG INH INH SCH ×2 (08:42→20:07)
[2019-11-21 08:45] LABS: FREE T4 1.18 ng/dL (0.93-1.70); TSH 1.05 uIUmL (0.27-4.20)
[2019-11-21] MEDS: PRILOSEC PO SCH (10:09)
[2019-11-21] MEDS: TOPROL XL PO SCH (10:09)
[2019-11-21] MEDS: NORVASC PO SCH (10:09)
[2019-11-21] MEDS: PAMELOR PO SCH (10:10)
--- NOTE | 2019-11-21 13:34 | PROGRESS NOTE ---
DATE: 11/21/2019 SUBJECTIVE: Ms. Hough is doing fair. I increased her pain medicine for better pain control. No high-grade fever or chills. The patient diagnosed to have Eli esophagitis. She was started on nystatin and the patient was requesting the same. The patient has Esposito catheter. She denied any diarrhea, blood or mucus in the stool. No typical chest pain or palpitation. I repeated her blood work. Hemoglobin stable around 8.1 and hematocrit 27. OBJECTIVE: Vital signs noted.Neck: Supple. No JVD. Lungs: Bibasilar crepitation, Heart: S1 and S2 heard. Abdomen: Soft, globular. Bowel sounds present. Extremities: No cyanosis, clubbing. Tenderness on the pubic area. DYE HOUSE HELPER: Alert, awake. Able to move all 4 limbs. LABORATORY DATA: The patient's potassium today was 3.4, BUN 13 creatinine 1.1. CONSIDERATION: 1. Blood loss anemia. 2. Acute pubic rami fracture. 3. Pelvic hematoma. 4. Urinary tract infection. 5. Peripheral arterial disease. 6. Chronic obstructive pulmonary disease. 7. Hypokalemia. 8. Hypothyroidism. PLAN: 1. We will encourage physical therapy evaluation. 2. Continue pain management. 3. Supplement potassium. 4. I resumed her nystatin for the esophageal candidiasis. 5. Continue rest of the treatment. cc: MD Adolfo Worthy MD
[2019-11-21] MEDS: MYCOSTATIN SUSP PO SCH ×3 (14:43→20:29)
[2019-11-21] MEDS: KLOR-CON PO SCH ×2 (14:43→20:29)
[2019-11-21] MEDS: LOVENOX SUBQ SCH (17:53)
[2019-11-21] MEDS: PROLIXIN PO SCH (20:28)
[2019-11-21] MEDS: CRESTOR PO SCH (20:28)
[2019-11-22] MEDS: NORCO-7.5 PO PRN ×5 (02:23→20:27)
[2019-11-22] MEDS: NS 1,000 ML IV SCH ×3 (04:39→23:25)
[2019-11-22] MEDS: LEVAQUIN 500 MG/D5W 500 MG/100 ML IVPB IV SCH (05:35)
[2019-11-22] MEDS: SYNTHROID PO SCH (06:27)
[2019-11-22] MEDS: HUMULIN R SUBQ SCH ×4 (06:41→20:28)
[2019-11-22 08:30] LABS: BASO# 0.04 X1000 (0.0-0.2); BASO% 0.4 % (0.0-0.8); EOS# 0.44 X1000 (0.0-0.7); EOS% 4.4 % (0.0-10.0); HEMATOCRIT 31.5 % (37.0-47.0); HEMOGLOBIN 9.2 g/dL (12.0-16.0); IMM GRAN# 0.05 X1000 (0.0-0.04); IMM GRAN% 0.5 % (0.0-0.5); LYMPH# 2.15 X1000 (1.2-3.4); LYMPH% 21.3 % (20.5-51.1); MCH 26.4 PG (27-31); MCHC 29.2 g/dL (33-37); MCV 90.5 FL (81-99); MONO# 1.28 X1000 (0.11-0.59); MONO% 12.7 % (1.7-9.3); MPV 8.9 FL (7.4-10.4); NEUT# 6.14 X1000 (1.4-6.5); NEUT% 60.7 % (42.2-75.2); PLT 413 X1000 (130-400); RBC 3.48 XMIL (4.2-5.4); RDW 16.8 % (11.5-14.5)
[2019-11-22] MEDS: TOPROL XL PO SCH (09:11)
[2019-11-22] MEDS: KLOR-CON PO SCH ×2 (09:11→20:27)
[2019-11-22] MEDS: PRILOSEC PO SCH (09:11)
[2019-11-22] MEDS: NORVASC PO SCH (09:11)
[2019-11-22] MEDS: MYCOSTATIN SUSP PO SCH ×4 (09:11→20:26)
[2019-11-22] MEDS: PAMELOR PO SCH (09:19)
[2019-11-22] MEDS: BREO ELLIPTA 100/25 MCG INH INH SCH ×2 (10:30→20:16)
--- NOTE | 2019-11-22 12:38 | ORTHOPAEDICS PROGRESS NOTE ---
DATE: 11/22/2019 SUBJECTIVE: Ms. Hough is lying in bed this morning. Still complaining of a little bit of pain on the left hip. She says it has been difficult for her to get mobilized. OBJECTIVE: Left lower extremity exam: She is able to move the extremity. It does cause some pain when she does that though. She remains neurovascularly intact to the left lower extremity. ASSESSMENT: 1. Left inferior and superior pubic rami fractures. 2. Left sacral insufficiency fracture. PLAN: I discussed with Ms. Hough about her fractures again. I am okay with her being weight bear as tolerated. It is going to take a good 6 to 8 weeks for her to heal this in, but she does need to be up daily with Physical Therapy or some type of assistance, walking. She can be full weightbearing to the left lower extremity, and she will need to follow up with Orthopedics with me in 2 weeks in clinic. cc: MD Adolfo Daniels MD
[2019-11-22] MEDS: LOVENOX SUBQ SCH (17:27)
--- NOTE | 2019-11-22 17:42 | PROGRESS NOTE ---
DATE: 11/22/2019 SUBJECTIVE: Patient denies having any acute complaints today. She states that she has been feeling well. OBJECTIVE: Vital Signs: Temperature 98.6 degrees, pulse 84 per minute, respiratory rate 18 per minute, blood pressure 150/49, pulse oximetry 99% on 3 L of oxygen via nasal cannula. General: Patient is alert and oriented x3. She does not appear to be in any acute distress. HEENT: Bilateral conjunctival pallor noted. Cardiovascular System: First and second heart sounds are audible without any murmurs or gallops. Respiratory System: Bilateral lung air entry is good without any rales or rhonchi. Gastrointestinal system: Abdomen is soft and nondistended. Normal bowel sounds are present. DIAGNOSTIC DATA: CBC shows a hemoglobin of 9.2 and hematocrit 31.5. In comparison, her hemoglobin and hematocrit were 8.1 and 27.5 yesterday. IMPRESSIONS: 1. Acute pubic rami fractures in this 78-year-old lady who also has pelvic hematoma causing her to have acute blood loss anemia that has now stabilized. 2. Extensive atherosclerosis involving the splanchnic circulation as well as peripheral arterial disease. 3. Multiple comorbid conditions including chronic obstructive pulmonary disease, type 2 diabetes mellitus, hypertension, dyslipidemia, and hypothyroidism. PLAN: The patient will continue to get physical therapy as per Orthopedics. She has been evaluated by Vascular Surgery, but they have not recommended her to have any intervention done for her peripheral vascular disease since that was deemed to be mild. We will continue with the rest of the supportive care, along with pain management. She also has a urinary tract infection for which she will continue with levofloxacin 500 mg a day. She will have repeat labs in the morning tomorrow and once we establish that her anemia has stabilized, we will discharge her for inpatient rehab. cc: Adolfo Sandoval MD
[2019-11-22] MEDS: XANAX PO PRN (18:15)
[2019-11-22] MEDS: DUONEB (A & A) INH PRN (20:16)
[2019-11-22] MEDS: CRESTOR PO SCH (20:27)
[2019-11-22] MEDS: NON-FORMULARY MED PO SCH (20:30)
[2019-11-22] MEDS: SEPTRA DS PO SCH (23:25)
[2019-11-23] MEDS: NORCO-7.5 PO PRN ×5 (00:20→21:10)
[2019-11-23] MEDS: HUMULIN R SUBQ SCH ×4 (06:33→21:11)
[2019-11-23] MEDS: SYNTHROID PO SCH (06:33)
[2019-11-23 07:29] LABS: BASO# 0.03 X1000 (0.0-0.2); BASO% 0.3 % (0.0-0.8); EOS# 0.35 X1000 (0.0-0.7); HEMATOCRIT 26.9 % (37.0-47.0); HEMOGLOBIN 7.8 g/dL (12.0-16.0); IMM GRAN# 0.03 X1000 (0.0-0.04); IMM GRAN% 0.3 % (0.0-0.5); LYMPH# 1.94 X1000 (1.2-3.4); LYMPH% 22.4 % (20.5-51.1); MCV 89.7 FL (81-99); MONO# 1.16 X1000 (0.11-0.59); MONO% 13.4 % (1.7-9.3); MPV 9.4 FL (7.4-10.4); NEUT# 5.14 X1000 (1.4-6.5); NEUT% 59.6 % (42.2-75.2); PLT 375 X1000 (130-400); RDW 16.3 % (11.5-14.5); WBC 8.65 X1000 (4.8-10.8)
[2019-11-23 07:46] LABS: AGAP 8; BUN 12 mg/dL (8-22); CALCIUM 8.7 mg/dL (8.8-10.2); CHLORIDE 103 mmol/L (98-107); COSMO 275; CREATININE 0.9 mg/dL (0.5-0.9); ESTIMATED GFR > 60; GLUCOSE 129 mg/dL (70-104); POTASSIUM 3.7 mmol/L (3.5-5.1); SODIUM 137 mmol/L (136-145); TCO2 26 mmol/L (25-35)
[2019-11-23] MEDS: BREO ELLIPTA 100/25 MCG INH INH SCH ×2 (08:10→20:28)
[2019-11-23] MEDS: TOPROL XL PO SCH (09:56)
[2019-11-23] MEDS: PAMELOR PO SCH (09:56)
[2019-11-23] MEDS: SEPTRA DS PO SCH ×2 (09:56→21:10)
[2019-11-23] MEDS: MYCOSTATIN SUSP PO SCH ×4 (09:56→21:10)
[2019-11-23] MEDS: KLOR-CON PO SCH ×2 (09:57→21:10)
[2019-11-23] MEDS: PRILOSEC PO SCH (09:57)
[2019-11-23] MEDS: NORVASC PO SCH (09:58)
[2019-11-23] MEDS: ICAR-C PO SCH ×2 (10:11→21:10)
--- NOTE | 2019-11-23 10:25 | PROGRESS NOTE ---
DATE: 11/23/2019 SUBJECTIVE: Patient denies having any acute complaints this morning and feels well. OBJECTIVE: Vital Signs: Temperature 99.1 degrees, pulse 90 per minute, respiratory rate 14 per minute, blood pressure 150/47, pulse oximetry 96% on 3 L of oxygen via nasal cannula. General: The patient is alert and oriented x3. She does not appear to be in any acute distress. HEENT: Bilateral conjunctival pallor noted. Respiratory System: Bilateral lung air entry is good without any rales or rhonchi. Cardiovascular System: First and second heart sounds are audible without any murmurs or gallops. Gastrointestinal system: Abdomen is soft and nondistended. Normal bowel sounds are present. Musculoskeletal System: No deformities are present. Range of motion of muscle and joints somewhat limited secondary to osteoarthritis. DIAGNOSTIC DATA: CBC shows hemoglobin of 7.8 and hematocrit 26.9. In comparison, her hemoglobin and hematocrit were 9.2 and 31.5 yesterday. Basic metabolic panel is nondiagnostic. IMPRESSION: 1. Acute pubic rami fractures in this 78-year-old lady who also has a pelvic hematoma causing her to have acute blood loss anemia and slight further drop in hemoglobin and hematocrit as compared to yesterday. 2. Extensive atherosclerosis involving the splanchnic circulation as well as peripheral arterial disease, but the peripheral arterial disease has been regarded as [id number], not requiring any active intervention at this time. 3. Multiple comorbid conditions including chronic obstructive pulmonary disease, type 2 diabetes mellitus, hypertension, dyslipidemia, and hypothyroidism. 4. Urinary tract infection secondary to Escherichia coli infection. PLAN: The patient will continue to get physical therapy as per Orthopedics. She has acute blood loss anemia because of which I am going to start her on Icar C 1 tablet orally twice daily and monitor her hemoglobin and hematocrit. She was supposed to be discharged to rehab today, but I am going to hold discharge since there is a drop in hemoglobin and hematocrit and repeat CBC tomorrow morning. She will continue to get supportive care and I have changed her antibiotics from levofloxacin to Bactrim DS as per culture results that showed E coli resistant to levofloxacin. She can be discharged to rehab once her hemoglobin and hematocrit is stabilized. cc: Adolfo Sandoval MD
[2019-11-23] MEDS: NS 1,000 ML IV SCH (11:51)
[2019-11-23] MEDS: XANAX PO PRN ×2 (12:01→21:10)
[2019-11-23] MEDS: LOVENOX SUBQ SCH (17:32)
[2019-11-23] MEDS: CRESTOR PO SCH (21:10)
[2019-11-23] MEDS: NON-FORMULARY MED PO SCH (21:11)
[2019-11-24] MEDS: NS 1,000 ML IV SCH ×2 (04:58→19:47)
[2019-11-24] MEDS: SYNTHROID PO SCH (06:30)
[2019-11-24] MEDS: HUMULIN R SUBQ SCH ×4 (06:30→21:31)
[2019-11-24 08:19] LABS: BASO# 0.03 X1000 (0.0-0.2); BASO% 0.3 % (0.0-0.8); EOS# 0.27 X1000 (0.0-0.7); EOS% 2.8 % (0.0-10.0); HEMATOCRIT 29.8 % (37.0-47.0); HEMOGLOBIN 8.7 g/dL (12.0-16.0); IMM GRAN# 0.06 X1000 (0.0-0.04); IMM GRAN% 0.6 % (0.0-0.5); LYMPH# 1.75 X1000 (1.2-3.4); LYMPH% 18.4 % (20.5-51.1); MCH 26.2 PG (27-31); MCHC 29.2 g/dL (33-37); MCV 89.8 FL (81-99); MONO# 1.14 X1000 (0.11-0.59); MPV 9.3 FL (7.4-10.4); NEUT# 6.24 X1000 (1.4-6.5); NEUT% 65.9 % (42.2-75.2); PLT 440 X1000 (130-400); RBC 3.32 XMIL (4.2-5.4); RDW 16.6 % (11.5-14.5); WBC 9.49 X1000 (4.8-10.8)
[2019-11-24] MEDS: BREO ELLIPTA 100/25 MCG INH INH SCH (09:19)
[2019-11-24] MEDS: NORVASC PO SCH (09:36)
[2019-11-24] MEDS: PAMELOR PO SCH (09:37)
[2019-11-24] MEDS: TOPROL XL PO SCH (09:37)
[2019-11-24] MEDS: MYCOSTATIN SUSP PO SCH ×4 (09:38→21:30)
[2019-11-24] MEDS: KLOR-CON PO SCH ×2 (09:38→21:30)
[2019-11-24] MEDS: ICAR-C PO SCH ×2 (09:38→21:30)
[2019-11-24] MEDS: SEPTRA DS PO SCH ×2 (09:38→21:30)
[2019-11-24] MEDS: PRILOSEC PO SCH (09:38)
[2019-11-24] MEDS: NORCO-7.5 PO PRN ×3 (09:38→21:30)
--- NOTE | 2019-11-24 12:01 | DISCHARGE SUMMARY ---
ADMISSION DATE: 11/17/2019 DISCHARGE DATE: 11/24/2019 DISCHARGE DIAGNOSES: 1. Fall with acute pubic rami fractures and pelvic hematoma causing acute blood loss anemia. 2. Chronic obstructive pulmonary disease. 3. Hypertension. 4. Urinary tract infection secondary to Escherichia coli. 5. Type 2 diabetes mellitus that has been well controlled. 6. Hypothyroidism. 7. Dyslipidemia. 8. Gastroesophageal reflux disease. HOSPITAL COURSE: Ms. Hough is a 78-year-old female who was brought into the emergency department after she had a fall. She was noted to have acute pubic rami fractures after which she was admitted to the hospital. She did have a CT scan showing a pelvic hematoma. Subsequently, her labs showed dropped hemoglobin and hematocrit, but that has now been stable. Today, her hemoglobin and hematocrit were found to be hemoglobin 8.7 and hematocrit 29.8. Orthopedics were consulted, who were seeing the patient during this hospital admission and they have recommended physical therapy without having any surgical intervention. The patient did have left lower extremity coldness after which we did aortic CT angiogram with runoff that showed extensive atherosclerosis of the splanchnic system, also with peripheral arterial disease, because of which we obtained consultation with Vascular Surgery. They have recommended the patient to have medical management at this time. The patient's condition has been overall stable, although she does have generalized deconditioning, because of which she will need prolonged rehabilitation. Since her condition has been stable, we are going to be discharging her to a rehab facility today. DISCHARGE MEDICATIONS: 1. Rosuvastatin 40 mg orally once daily at bedtime. 2. Omeprazole 40 mg orally once daily in the morning. 3. Bactrim DS orally b.i.d. x5 days. 4. Alprazolam 0.5 mg orally b.i.d. p.r.n. for anxiety. 5. Everett 7.5 mg every 4 hours as needed for pain. 6. Nortriptyline 25 mg orally once daily. 7. Metoprolol ER 50 mg orally once daily. 8. Metformin ER 500 mg orally twice daily. 9. Levothyroxine 125 mcg orally once daily. 10. Icar-C 1 tablet orally twice daily. 11. Breo Ellipta inhaler 100/25 1 puff once daily. 12. Amlodipine 2.5 mg orally once daily. 13. Albuterol and Atrovent nebulization treatments every 6 hours as needed for wheezing. FOLLOWUP: She will follow up with Dr. Michael from orthopedic service in approximately 2 weeks and follow up with me at the office in 1 to 2 weeks after discharge from rehab facility. CONDITION: Stable. DISPOSITION: Rehab facility. cc: Adolfo Sandoval MD
[2019-11-24] MEDS: LOVENOX SUBQ SCH (16:48)
[2019-11-24 20:33] VITALS: BP 143/46
[2019-11-24] MEDS: XANAX PO PRN (21:30)
[2019-11-24] MEDS: CRESTOR PO SCH (21:30)
== END 2019-11-24 22:08 | DRG 690 ==
LOC: SUPCPDRO → ED 23:32 → EDIPHOLD 11-17 04:59 → SUATTDRO 11-17 04:59 → 3N 11-17 14:33
PROVIDERS: ADMIT Internal Medicine; ATTEND Internal Medicine

== ENCOUNTER 2020-01-11 15:35 | Inpatient (IN) ==
--- NOTE | 2020-01-11 16:30 | Diag Imaging Result Doc PS360 ---
EXAM: CT HEAD W/O CONTRAST 01/11/2020 HISTORY: ALTERED MENTAL STATUS TECHNIQUE: This exam was performed using automated exposure control, adjustment of mA or kV according to patient size, and/or use of iterative reconstruction technique. COMMENT: There are calcifications in the vertebral and internal carotid arteries bilaterally. There are some calcifications in the left globus pallidus. There is no evidence of mass effect or bleed. There are tiny lacunae present in the internal capsule bilaterally. Compared to 11/17/2019 the appearance of the brain has not changed significantly. The visualized paranasal sinuses are clear. The calvarium is intact. IMPRESSION: Minimal microvascular changes. No evidence of acute disease. Electronically signed by Darryl Miller 01/11/2020 4:28 PM
--- NOTE | 2020-01-11 16:37 | EKG Report ---
Test Performed on : 01/11/2020 3:57:08 PM Test Reason : Stroke like symptoms Blood Pressure : / mmHG Vent. Rate : 081 BPM Atrial Rate : 081 BPM P-R Int : 154 ms QRS Dur : 076 ms QT Int : 380 ms P-R-T Axes : 050 060 061 degrees QTc Int : 441 ms Normal sinus rhythm. Normal ECG When compared with ECG of 17-NOV-2019 00:33, (Unconfirmed) No significant change was found Unconfirmed Result
[2020-01-11 17:03] LABS: URINE SOURCE CATH
[2020-01-11 17:08] LABS: BASO# 0.03 X1000 (0.0-0.2); BASO% 0.3 % (0.0-0.8); EOS# 0.25 X1000 (0.0-0.7); EOS% 2.7 % (0.0-10.0); HEMATOCRIT 35.4 % (37.0-47.0); HEMOGLOBIN 10.4 g/dL (12.0-16.0); IMM GRAN# 0.03 X1000 (0.0-0.04); IMM GRAN% 0.3 % (0.0-0.5); LYMPH# 1.89 X1000 (1.2-3.4); MCH 27.7 PG (27-31); MCHC 29.4 g/dL (33-37); MCV 94.1 FL (81-99); MONO# 0.99 X1000 (0.11-0.59); MONO% 10.5 % (1.7-9.3); MPV 8.6 FL (7.4-10.4); NEUT# 6.24 X1000 (1.4-6.5); NEUT% 66.2 % (42.2-75.2); PLT 456 X1000 (130-400); RBC 3.76 XMIL (4.2-5.4); RDW 16.2 % (11.5-14.5); WBC 9.43 X1000 (4.8-10.8)
[2020-01-11 17:09] LABS: BILIRUBIN URINE NEGATIVE (NEGATIVE); BLOOD URINE MODERATE (NEGATIVE); COLOR YELLOW; GLUCOSE URINE NEGATIVE (NEGATIVE); KETONE URINE NEGATIVE (NEGATIVE); LEUKOCYTES URINE TRACE (NEGATIVE); NITRITE URINE NEGATIVE (NEGATIVE); PH URINE 6.5; PROTEIN URINE TRACE mg/dL (NEGATIVE); SP GRAVITY URINE 1.004; TURBIDITY URINE CLEAR (CLEAR); UR EPITHELIAL CELLS <10 /HPF (<10); URINE BACTERIA NEGATIVE /HPF; URINE RBC <10 /HPF (<10); URINE WBC <10 /HPF (<10); UROBILINOGEN URINE NORMAL (NORMAL)
[2020-01-11 17:17] LABS: UR AMPHETAMINES QUAL NONE DETECTED (NONE DETECT); UR BARBITUATES QUAL NONE DETECTED (NONE DETECT); UR BENZODIAZEPIN QUAL NONE DETECTED (NONE DETECT); UR CANNABINOIDS QUAL NONE DETECTED (NONE DETECT); UR COCAINE QUAL NONE DETECTED (NONE DETECT); UR METHADONE QUAL NONE DETECTED (NONE DETECT); UR OPIATES QUAL PRESUMPTIVE POSITIVE (NONE DETECT); UR OXYCODONE QUAL NONE DETECTED (NONE DETECT); UR PCP QUAL NONE DETECTED (NONE DETECT)
[2020-01-11 17:36] LABS: AGAP 16; ALB/GLOB RATIO 1.5; ALBUMIN 4.1 g/dL (3.5-5.0); ALKALINE PHOSPHATASE 194 U/L (32-104); BUN 6 mg/dL (8-22); CALCIUM 9.3 mg/dL (8.8-10.2); CHLORIDE 100 mmol/L (98-107); COSMO 275; CREATININE 0.9 mg/dL (0.5-0.9); ESTIMATED GFR > 60; GLUCOSE 97 mg/dL (70-104); GOT 15 U/L (10-30); GPT 10 U/L (10-36); POTASSIUM 4.6 mmol/L (3.5-5.1); SODIUM 139 mmol/L (136-145); TCO2 23 mmol/L (25-35); TOTAL PROTEIN 6.8 g/dL (6.3-8.3)
[2020-01-11] MEDS ORDERED: DUONEB (A & A) INH ONE (17:47)
[2020-01-11] MEDS ORDERED: NS 1,000 ML IV ONE (18:29)
--- NOTE | 2020-01-11 18:29 | PROVIDER DOCUMENTATION ---
This chart was entered by Marie Rivera Scribe, acting as scribe for Gi Garces MD. HPI-General Adult - General Chief Complaint: Weakness Stated Complaint: WEAKNESS Time Seen by Provider: 01/11/20 15:59 Source: patient, family, EMS Allergies/Adverse Reactions: Patient Allergies Allergy/AdvReac Type Severity Reaction Status Date / Time No Known Allergies Allergy Verified 01/11/20 16:00 Home Medications: Home Medication List Medication Instructions Recorded Confirmed Last Taken Type Levothyroxine [Synthroid] 125 microgm PO DAILY 12/25/13 01/11/20 01/11/20 History Fluphenazine [Prolixin] 2.5 mg PO QHS 01/29/18 01/11/20 01/10/20 History Omeprazole 40 mg PO QAM 01/29/18 01/11/20 01/11/20 History Amlodipine Besylate 2.5 mg PO DAILY 12/14/18 01/11/20 01/11/20 History Nortriptyline HCl 25 mg PO DAILY 12/14/18 01/11/20 01/11/20 History Metoprolol Succinate E.r. [Toprol 50 mg PO DAILY #30 tablet 12/15/18 01/11/20 01/11/20 Rx Xl] Rosuvastatin Calcium 40 mg PO HS 05/27/19 01/11/20 01/10/20 History Fluticasone/Vilanterol [Breo 1 puff INH BID 11/16/19 01/11/20 01/11/20 History Ellipta 100-25 Mcg INH] Albuterol 2.5MG/Ipratrop 0.5MG 3 ml INH Q6H PRN PRN #0 11/24/19 01/11/20 01/11/20 Rx [Duoneb (A & A)] Alprazolam [Xanax] 0.5 mg PO BID PRN PRN tab 11/24/19 01/11/20 01/11/20 Rx Hydrocodone/APAP 7.5 mg/325 mg 1 ea PO Q4H PRN PRN tab 11/24/19 01/11/20 01/11/20 11:00 Rx [[place]-7.5] Iron Carbonyl/Ascorbic Acid 1 ea PO BID #60 tab 0101/11/20 01/11/20 Rx [Icar-C] Metformin E.r. [Glucophage Xr] 500 mg PO BID CC #60 tab 11/24/19 01/11/20 01/11/20 Rx Polyethylene Glycol [Polyox 1 dose PO DAILY 01/11/20 01/11/20 01/11/20 History [id number]] Sennosides [Senna] 1 tab PO DAILY 01/11/20 01/11/20 Unknown History - History of Present Illness -Gen Adult Nature of Presenting Problems: 79 yod presents to the ed via ems due to brother believes her speech is unclear and sob. brother was with pt yesterday and sts speech was different and at baseline yesterday. pt denies speech being altered. brother sts he called the pt this morning around 1000am and noted the change. pt on exam is in no distress and nontoxic in appearance Location of Pain/Injury: reports: none Pain Radiation: reports: no radiation Quality of Pain: reports: none Severity: reports: mild (speech) Onset/Duration: reports: this morning (1000am) Timing: reports: still present (per brother) Context/Activities at Onset: reports: light activity Modifying Factors: improves with: nothing Associated Symptoms: reports: shortness of breath, other (speech). denies: back/neck pain, chest pain, fever/chills, nausea, sensory/motor loss, vomiting, trouble walking Similar Symptoms Previously?: No Recently seen or treated by another doctor?: No Review of Systems - Adult - REVIEW OF SYSTEMS - ADULT Constitutional: denies: chills, fever Eyes: reports: no symptoms reported Ears, Nose, Mouth & Throat: reports: no symptoms reported Cardiovascular: denies: chest pain, palpitations Respiratory: reports: see HPI, shortness of breath. denies: cough, wheezing Gastrointestinal: reports: no symptoms reported Genitourinary: reports: no symptoms reported Musculoskeletal: reports: no symptoms reported Integumentary: reports: no symptoms reported Neurological: reports: see HPI, other (speech unclear but not slurred). denies: dizziness/vertigo, headache/migraines, loss of balance, seizure, syncope, tremors Psychiatric: reports: no symptoms reported Endocrine: reports: no symptoms reported Hematologic/Lymphatic: reports: no symptoms reported Allergic/Immunologic: reports: no symptoms reported All Other Systems: Reviewed and Negative Past History - Adult - PAST MEDICAL HISTORY-ADULT Review of Records: reports: Old Records Reviewed, Nursing Assessment Review, Medications Reviewed, Social history reviewed & non-contributory. Cardiovascular: reports: HTN Respiratory: reports: asthma, COPD Endocrine/Immune: reports: thyroid disorder (hyper) - IMMUNIZATION STATUS Childhood Immunizations: See Nurse Assessment Flu Vaccine: See Nurse Assessment - FAMILY HISTORY Family History: reviewed, not pertinent Physical Exam-General - PHYSICAL EXAM-ADULT Initial Vital Signs Reviewed: Yes - CONSTITUTIONAL General Appearance: appears well, alert, no apparent distress - EYES Eyes: PERRL/EOMI, pink conjunctivae - HEAD, EARS, NOSE, MOUTH & THROAT HENMT: moist mucous membranes, other (has noted flatened nasal groove on rt side) - NECK Neck: non-tender, full range of motion, supple, normal inspection - RESPIRATORY Respiratory: chest non-tender, lungs clear, increased rate (25) - CARDIOVASCULAR Cardiovascular: normal peripheral pulses, regular rate, rhythm - CHEST (BREASTS) Chest/Breast: deferred - GASTROINTESTINAL (ABDOMEN) Abdominal Exam: non tender, soft - GENITOURINARY Female Genitalia/Pelvic Exam: deferred Rectal Exam: deferred Hemoccult Exam: deferred - MUSCULOSKELETAL Back Exam: no CVA tenderness, no vertebral tenderness Extremity: normal inspection, normal capillary refill, other (ambulates with a walker) - SKIN Integumentary: normal color, normal turgor, warm/dry - NEUROLOGIC Neurologic: other (dysarthria with some mild right nasolabial flattening NIH stroke scale of 2) - PSYCHIATRIC Psych/Mental Status: normal mood/affect, normal thought content, normal thought process, oriented x 3 Progress - PLAN OF CARE/RESULTS Progress/Plan/Lab Results: Vital Signs - 8 hr 01/11/20 15:45 Temperature 97.5 F L Pulse Rate 84 Respiratory Rate 25 H Blood Pressure 141/73 O2 Sat by Pulse Oximetry 96 Laboratory Results - last 24 hr 01/11/20 15:56 POC Glucose 100 Orders Category Date Time Status Cardiac Monitoring DIRECTED Care 01/11/20 16:19 Active NEWS Score 2-4:Order NEWS Lactate Series NOW Care 01/11/20 16:[address] HEAD W/O CONTRAST [CT] Stat Exams 01/11/20 15:58 Completed CTA [CT ANGIOGRM PULMONARY ARTERIES] [CT] Stat Exams 01/11/20 16:21 Ordered CBC WITH ELECTRONIC DIFF [HEME] Stat Lab 01/11/20 16:19 Uncollected COMPREHENSIVE METABOLIC PANEL [CHEM] Stat Lab 01/11/20 16:19 Uncollected LACTATE, PLASMA [CHEM] Q3H Lab 01/11/20 16:15 Uncollected LACTATE, PLASMA [CHEM] Q3H Lab 01/11/20 19:15 Uncollected LACTATE, PLASMA [CHEM] Q3H Lab 01/11/20 22:15 Uncollected PROTIME WITH INR [COAG] Stat Lab 01/11/20 16:19 Uncollected PTT [COAG] Stat Lab 01/11/20 16:19 Uncollected TROPONIN T HIGH SENSITIVITY Stat Lab 01/11/20 16:19 Uncollected URINALYSIS W/POSS RFLX CULT [URINALYSIS] Stat Lab 01/11/20 16:33 Ordered URINE DRUG SCREEN Stat Lab 01/11/20 16:33 Ordered EKG [EKG] Stat Ther 01/11/20 16:19 Draft NIH scale 1 Result Diagrams: 01/11/20 16:47 01/11/20 16:47 - REASSESSMENT Reassessment #1 Time Reassessed: 18:38 Status: improving (Patient seen with family at bed side. She states that she has been wheezing in the past few days. She is no longer tachypneic after duonebx1 today. No wheezig noted on ascultation. Family still reports abnormal speech. I did notice improvement on the right nasolabial fold. Discussed admission with pt and family as TIA VS CVA.) - EKG 1 Time of EKG reading by physician:: 15:57 EKG Read and Signed by:: Gi Garces EKG Interpretation (*Must complete 3 of following elements*): Normal Rate: 81 Rhythm: nsr [place]: normal QRS: normal CO Interval: normal ST Wave: normal - CT/MRI 1 Impression: See EMR Report (EXAM: CT HEAD W/O CONTRAST 01/11/2020 HISTORY: ALTERED MENTAL STATUS TECHNIQUE: This exam was performed using automated expos ure control, adjustment of mA or kV according to patient size, and/or use of iterative reconstruction technique. COMMENT: There are calcifications in the vertebral and internal carotid arteries bilaterally. There are some calcifications in the left globus pallidus. There is no evidence of mass effect or bleed. There are tiny lacunae present in the internal capsule bilaterally. Compared to 11/17/2019 the appearance of the brain has not changed significantly. The visualized paranasal sinuses are clear. The calvarium is intact. IMPRESSION: Minimal microvascular changes. No evidence of acute d isease. Electronically signed by Darryl Miller 01/11/2020 4:28 PM 01/11/20 1628 Interpreting Physician: Darryl Miller MD Dictated Date/Time: 01/11/20 1627 cc: Juarez Green MD; Adolfo Sandoval MD) 2 CT Study: Angiogram Impression: See EMR Report - CONSULTS/PCP/HOSPITALIST Notification #1 *Consult/PCP/Hospitalist*: dr. Petersen Time Discussed: 19:51 Consult Disposition: Admit (accepts patient) Departure - Departure Date of Disposition Decision: 01/11/20 Time of Disposition Decision: 19:47 DIAGNOSIS: TIA (transient ischemic attack), COPD with exacerbation CVA (cerebral vascular accident) Qualifiers: CVA mechanism: unspecified Qualified Code(s): I63.9 - Cerebral infarction, unspecified Disposition: ADMITTED INPATIENT 09 Certified Medical Emergency: Emergent Condition: Stable Referrals and Follow-Ups: Adolfo Sandoval MD [Primary Care Provider] - - Critical Care Note This patient required my direct & personal management of CC.: No Attestation - Physician/ ROGELIO Attestation Patient care was provided by Advanced Practice Provider:: No The physician spent face to face time with patient:: Yes Advanced Practice Provider documentation review:: Supervising physician onsite and consulted in the evaluation and care of this patient. The physician did have a face to face encounter with the patient. This chart was documented by the indicated scribe, (Marie Rivera Scribe) and accurately reflects the services I performed and decisions made by me, Gi Garces MD, as attested by the provider's signature.
[2020-01-11 20:56] LABS: INR 0.87; PROTIME 11.9 Seconds (11.0-16.0); PTT 24.5 Seconds (22.3-41.8)
[2020-01-11] MEDS ORDERED: DUONEB (A & A) INH PRN (22:04)
[2020-01-11] MEDS: DUONEB (A & A) INH SCH (23:18)
[2020-01-12] MEDS ORDERED: XANAX PO PRN (00:14)
[2020-01-12] MEDS: NS 1,000 ML IV SCH (01:27)
--- NOTE | 2020-01-12 05:25 | HISTORY AND PHYSICAL ---
CHIEF COMPLAINT: Weakness, recent onset. HISTORY OF PRESENT ILLNESS: Ms. Gregory Hough is a 79-year-old female. She does have a history of COPD, hypertension, diabetes mellitus, hyperlipidemia, hypothyroidism, gastroesophageal reflux disease. She presented to hospital because of weakness and she describes having difficulty with ambulation. She denies any loss of consciousness. ER records indicate the patient may have had some speech abnormalities, which the patient actually denies. She also denies having headaches but admits to having dizziness. She did have a CT scan of the brain at the time of her presentation, which did not reveal any acute findings. The patient has now been admitted to the floor for further management. PAST MEDICAL HISTORY: COPD, the patient is on 2 L of oxygen at night. She does have a history of hypertension, diabetes mellitus, hypothyroidism, as well as gastroesophageal reflux disease. SOCIAL HISTORY: The patient denies any current history of cigarette smoking, alcohol, or drug use. ALLERGIES: No known drug allergies. PAST SURGICAL HISTORY: She has had back surgery, hysterectomy, cataract surgery. FAMILY HISTORY: Positive for heart disease. MEDICATIONS: Include the followin. Levothyroxine 125 mcg p.o. daily. 2. Prolixin 2.5 mg p.o. at bedtime. 3. Omeprazole 40 mg p.o. q.a.m. 4. Amlodipine 2.5 mg p.o. once a day. 5. Nortriptyline 25 g p.o. daily. 6. Metoprolol succinate ER 50 mg p.o. daily. 7. Rosuvastatin 40 mg p.o. at bedtime. 8. Breo Ellipta 1 puff twice a day. 9. DuoNeb 3 mL q.6 hours p.r.n. 10. Xanax 0.5 g p.o. twice a day p.r.n. 11. Hydrocodone-acetaminophen 7.5-325 one every 4 hours p.r.n. 12. Icar-C 1 twice a day. 13. Metformin ER 500 mg p.o. twice a day. 14. Polyethylene glycol 1 dose daily. 15. Senna 1 tab daily. REVIEW OF SYSTEMS: Constitutional: She denies any fever. DOCUMENTATION IMPROVEMENT SPECIALIST: As in history of present illness. Eyes: She wears glasses. ENT: No sinus problems, no hearing loss. Cardiovascular: No chest pain or palpitations. Respiratory: No cough or shortness of breath. Gastrointestinal: No nausea, vomiting, diarrhea, abdominal pain. Genitourinary: No dysuria. Musculoskeletal: No joint pain. Dermatology: No skin lesions. Hematology: No bleeding problems. Endocrine/Allergies: She has thyroid issues with diabetes. PHYSICAL EXAMINATION: VITAL SIGNS: Temperature 97.4 degrees, pulse 95, respiratory rate 16, blood pressure 146/49, oxygen saturation is 91%. HEENT: She is atraumatic, normocephalic. She is anicteric. No oral lesions noted. NECK: No lymphadenopathy or thyromegaly. CARDIOVASCULAR: S1, S2. RESPIRATORY: She has evidence of good air entry bilaterally. ABDOMEN: Soft, nontender. No masses felt. EXTREMITIES: No evidence of edema. CENTRAL NERVOUS SYSTEM: The patient is awake. She is alert. Her speech is normal. No obvious focal neurological deficits. The patient's gait was not assessed. LABORATORY DATA: WBCs 9.43, hematocrit 35.4, with a platelet count of 456,000. INR is 0.87. Sodium is 139, potassium 4.6, chloride is 100, bicarb 23, BUN 6, creatinine 0.9. Alkaline phosphatase 194. UA shows trace protein, moderate amount of blood, trace leukocytes. Urine drug screen positive for opiates. CT of the brain, no acute disease. EKG. Shows normal sinus rhythm. ASSESSMENT AND PLAN: 1. Probable transient ischemic attack. We will maintain patient on aspirin. Obtain an MRI as well as MRA of the head, carotid Doppler study, as well as a 2D echo of the heart. Will recommend physical therapy, occupational therapy, speech therapy as well as swallow evaluation. Obtain lipid panel. Maintain patient on Lovenox for deep venous thrombosis prophylaxis. 2. Chronic obstructive pulmonary disease. Nebulized bronchodilators as needed. 3. Hypertension. Allow for permissive hypertension in light of probable transient ischemic attack. 4. Diabetes mellitus. Monitor blood sugar levels. Maintain patient on sliding scale insulin. Check hemoglobin A1c level. 5. Hyperlipidemia. Maintain patient on lipid-lowering agent. 6. Hypothyroidism. Check thyroid function tests. Continue levothyroxine. 7. Gastroesophageal reflux disease. Maintain patient on proton pump inhibitor. 8. Anemia. Follow up on hemoglobin and hematocrit. Transfuse packed red blood cells as needed. 9. Deep vein thrombosis prophylaxis. Lovenox. 10. Gastrointestinal prophylaxis. Proton pump inhibitor. cc: Gus Perez MD [facility]
[2020-01-12] MEDS: DUONEB (A & A) INH SCH ×7 (05:37→22:37)
[2020-01-12] MEDS: HUMULIN R SUBQ SCH ×4 (06:16→21:23)
[2020-01-12] MEDS: SYNTHROID PO SCH (06:27)
[2020-01-12] MEDS: PRILOSEC PO SCH (06:28)
[2020-01-12 07:56] LABS: HEMOGLOBIN A1C 5.8 % (4.8-6.0)
[2020-01-12] MEDS ORDERED: DUONEB (A & A) ONE (08:05)
--- NOTE | 2020-01-12 10:11 | Diag Imaging Result Doc PS360 ---
EXAM: MRI BRAIN W/O CONTRAST INDICATION: tia COMPARISON: None. FINDINGS: There is no evidence of acute infarct. There is patchy T2/FLAIR hyperintensity in the periventricular and subcortical white matter suggesting moderate microangiopathy. There is also pontine white matter microangiopathy. There is no discrete intracranial mass, mass effect, or intracranial hemorrhage. The surrounding soft tissues and bony structures are essentially unremarkable. IMPRESSION: Findings suggesting white matter microangiopathy but no evidence of acute pathology. Electronically signed by Yonathan Lombardo 01/12/2020 10:09 AM
--- NOTE | 2020-01-12 10:23 | Diag Imaging Result Doc PS360 ---
EXAM: MRA BRAIN W/O CONTRAST INDICATION: tia TECHNIQUE: 3-D [id number] axial images and 3-D MIPS were obtained. COMPARISON: None. FINDINGS: There is mild atherosclerotic irregularity seen at the right carotid siphon but no flow-limiting stenosis is appreciated here. The left vertebral artery terminates in PICA, a normal variant. The basilar artery is widely patent. Otherwise, there is no evidence of flow-limiting stenosis, vascular malformation, or cerebral aneurysm associated with any of the arteries comprising the [place] including the anterior, middle, and posterior cerebral arteries. IMPRESSION: Mild atherosclerotic irregularity involving the right carotid siphon with no flow-limiting stenosis. Essentially unremarkable MRA brain, otherwise. Electronically signed by Yonathan Lombardo 01/12/2020 10:21 AM
[2020-01-12] MEDS: ASPIRIN PO SCH (10:39)
[2020-01-12] MEDS: NORVASC PO SCH (10:39)
[2020-01-12] MEDS: SENOKOT PO SCH (10:40)
[2020-01-12] MEDS: TOPROL XL PO SCH (10:40)
[2020-01-12] MEDS: ICAR-C PO SCH ×2 (10:40→21:23)
[2020-01-12] MEDS ORDERED: TYLENOL PM PO PRN (18:36)
[2020-01-12] MEDS ORDERED: PROLIXIN PO SCH (21:00)
[2020-01-12] MEDS ORDERED: NON-FORMULARY MED PO SCH (21:00)
[2020-01-12] MEDS ORDERED: CRESTOR PO SCH (21:00)
[2020-01-12] MEDS ORDERED: TYLENOL PM PO SCH (21:00)
[2020-01-13] MEDS: NS 1,000 ML IV SCH (00:54)
[2020-01-13] MEDS: DUONEB (A & A) INH SCH ×3 (03:27→11:17)
[2020-01-13] MEDS: HUMULIN R SUBQ SCH (06:24)
[2020-01-13] MEDS: SYNTHROID PO SCH (06:31)
[2020-01-13] MEDS: PRILOSEC PO SCH (06:31)
[2020-01-13 08:10] LABS: CHOLESTEROL 133 mg/dL (0-200); HDL 71 mg/dL (45-65); LDL 38 mg/dL; TRIGLYCERIDES 122 mg/dL (35-135); VLDL 24 mg/dL
[2020-01-13] MEDS ORDERED: LOVENOX SUBQ SCH (09:00)
[2020-01-13] MEDS: TOPROL XL PO SCH (09:25)
[2020-01-13] MEDS: NORVASC PO SCH (09:25)
[2020-01-13] MEDS: ICAR-C PO SCH (09:26)
[2020-01-13] MEDS: ASPIRIN PO SCH (09:26)
[2020-01-13] MEDS: SENOKOT PO SCH (09:27)
[2020-01-13 11:04] VITALS: BP 155/72
--- NOTE | 2020-01-13 17:29 | ECHO REPORT ---
ORDER DATE: 01/12/2020 INDICATION: TIA, hypertension. M-MODE MEASUREMENTS: Left ventricle end diastole: 3.3. Left ventricle end systole: 2.2. Posterior wall: 1.0. Interventricular septum: 1.1. Left atrium: 3.5. Aortic diameter: 3.3. SUMMARY OF 2-DIMENSIONAL IMAGIN. Left ventricular function is normal. Ejection fraction is 68%. There is no wall motion abnormality noted 2. The aortic valve looks normal. Color flow mapping indicates trace regurgitation. 3. The pulmonic valve is normal. Color flow mapping indicates a mild degree of regurgitation. 4. The tricuspid valve shows a minimal degree of regurgitation. The inferior vena cava is not dilated. Pulmonary pressure is estimated at 40 mmHg. 5. The left atrium is mildly enlarged. 6. The mitral valve looks normal. 7. Pulse wave Doppler of mitral inflow shows mild reversal of the E/A ratio at 0.7. 8. Tissue Doppler of septal and lateral mitral annulus averages 6.5 cm. There is borderline impaired left ventricular relaxation. 9. The pulmonary venous flow is normal. 10.The right-sided chambers are not dilated. 11.There is a trivial right-sided pericardial effusion. This is probably physiologic. There is no evidence of mass and no thrombus. Clinical correlation recommended. cc: MD Gus Rawls MD Adnan A. Seljuki, MD
--- NOTE | 2020-01-13 20:59 | DISCHARGE SUMMARY ---
ADMISSION DATE: 01/11/2020 DISCHARGE DATE: 01/13/2020 DISCHARGE DIAGNOSES: 1. Transient ischemic attack. 2. Hypertension. 3. Type 2 diabetes mellitus. 4. Chronic obstructive pulmonary disease. 5. Dyslipidemia. 6. Hypothyroidism. 7. Urinary tract infection. HOSPITAL COURSE: Ms. Gregory Hough is a 79-year-old female who came into the hospital after describing having difficulty with ambulation. She denied having any loss of consciousness. She was noted to have some weakness and dizziness because of which she had a CT scan of the brain on presentation at the emergency room that was negative. She was admitted to the hospital and a brain MRI, along with brain MRA were performed, which were also negative for any significant issues. She recovered fully within 24 hours and she has been doing well since her admission. Since her condition has improved, we are going to be discharging her home today. We did do urinalysis and that grew gram-negative rods, therefore, we are going to treat her with the levofloxacin as outpatient. DISCHARGE MEDICATIONS: 1. Levofloxacin 500 mg orally once daily for 5 days. 2. Aspirin 81 mg orally once daily. 3. Alprazolam 0.5 mg orally twice daily as needed for anxiety symptoms. 4. Amlodipine 2.5 mg orally once daily. 5. Fluphenazine 2.5 mg orally once daily at bedtime. 6. Icar C orally once daily. 7. Levothyroxine 125 mcg orally once daily. 8. Metoprolol ER 50 mg orally once daily. 9. Omeprazole 40 mg orally once daily in the morning. 10. Rosuvastatin 40 mg orally once daily at bedtime. 11. Senna 8.6 mg orally once daily. 12. Albuterol and ipratropium bromide nebulization treatment every 6 hours as needed for wheezing. 13. Hydrocodone 7.5 mg/acetaminophen 325 mg orally every 4 hours as needed for pelvic pain. 14. Fluticasone/Vilanterol, which is Breo Ellipta, 100/25 inhaler 1 inhalation twice daily. 15. Metformin ER 500 mg orally twice daily. 16. Nortriptyline 25 mg orally once daily at bedtime. 17. MiraLAX 17 g orally once daily. FOLLOW-UP: She will follow up with the office in approximately 1 week. CONDITION: Stable. DISPOSITION: Home. cc: Adolfo Sandoval MD
== END 2020-01-13 14:40 | disposition home or self-care (01) | DRG 69 ==
LOC: SUPCPDRO → ED 15:35 → SUATTDRO 23:10 → 4N 23:10
PROVIDERS: ADMIT Internal Medicine; ATTEND Internal Medicine